=== PATIENT | female | born 1955 | race Caucasian/White ===

== ENCOUNTER 2018-12-08 09:26 | Day surgery (SDC) | payer MEDICARE, OTHER ==
[~2018-12-08] VITALS: Ht 165.1 cm; Wt 58.7 kg
[~2018-12-08 09:26] MED LIST: Budeprion Xl300 MG PO; LEVSOD50 PO; MIRALAX17 GM
== END 2018-12-08 11:17 | disposition home or self-care (01) ==
LOC: ORSCSDS 09:26
PROVIDERS: Internal Medicine Gastroenterology
PROC: 0DJD8ZZ Inspection of Lower Intestinal Tract, Via Natural or Artificial Opening Endoscopic (ICD-10-PCS; principal; 2018-12-08 10:45)
DX: Z12.11 Encounter for screening for malignant neoplasm of colon (principal); Z80.0 Family history of malignant neoplasm of digestive organs; K57.30 Diverticulosis of large intestine without perforation or abscess without bleeding; Z79.899 Other long term (current) drug therapy
CPT/HCPCS: J2704; J7120